=== PATIENT | female | born 1990 | race Caucasian/White ===

== ENCOUNTER 2017-06-10 03:13 | Emergency (ER) | payer SELFPAY ==
[~2017-06-10] VITALS: Ht 170.2 cm; Wt 67.0 kg
[2017-06-10 03:24] VITALS: BP 111/69; PULSE 84; RESP 18; TEMP 98.3; O2SAT 100
[2017-06-10 04:49] LABS: BILIRUBIN, URINE NEG (NEG); BLOOD, URINE TRACE (NEG); GLUCOSE,URINE NEG (NEG); KETONE, URINE NEG (NEG); NITRITE,URINE NEG (NEG); PH, URINE 5.5 (5.0-8.5); URINE COLOR YELLOW (YELLW/STRAW); URINE LEUKOCYTE ESTERASE NEG (NEG)
[2017-06-10] MEDS ORDERED: ZOLO100T PO (05:29)
[2017-06-10] MEDS ORDERED: BIRTH CONTROL PILLS PO (05:29)
[2017-06-10] MEDS ORDERED: BUPR100CR PO (05:29)
[2017-06-10 05:35] LABS: RBC, URINE 0-3 /hpf (0-3); SQUAMOUS EPITHELIAL CELL URINE 0-5 /hpf (0-5); WBC, URINE 0-2 /hpf (0-5)
[2017-06-10 07:05] VITALS: BP 106/56; PULSE 81; RESP 18; O2SAT 99
[2017-06-10 07:18] VITALS: BP 108/69; PULSE 95; RESP 16; O2SAT 97
--- NOTE | 2017-06-10 07:29 | PD ---
HPI Chief Complaint: Injury Time Seen by Provider: 06:56 Travel History International Travel<30 days: No Contact w/Intl Traveler<30days: No Traveled to known affect area: No History of Present Illness HPI 27-year-old female arrives to the ER by EMS. The patient was at a music concert. The patient had a fall. The patient drank alcohol yesterday. She complains of right shoulder pain. Associated abrasion reported. No additional complaints. PFSH Past Medical History Diminished Hearing: No Tetanus Vaccination: Unknown Influenza Vaccination: Yes ?: Not LMP: 06/04/17 Past Surgical History Tonsillectomy: Yes Social History Alcohol Use: Yes (TWICE A WEEK) Tobacco Use: No Substance Use: No Allergies-Medications Reported Meds & Prescriptions Reported Meds & Active Scripts Active Reported [ Control Pills] 1 Tab PO DAILY Zoloft (Sertraline HCl) 100 Mg Tab 100 Mg PO DAILY Wellbutrin SR 12 HR (Bupropion HCl) 100 Mg Tab 100 Mg PO Q12HR Review of Systems Except as stated in HPI: all other systems reviewed are Neg General / Constitutional: No: Fever Physical Exam Narrative GENERAL: 27 yo F, WNWD, NAD, sleeping comfortably SKIN: Warm and dry. HEAD: Atraumatic. Normocephalic. EYES: Pupils equal and round. No scleral icterus. No injection or drainage. ENT: No nasal bleeding or discharge. Mucous membranes pink and moist. NECK: Trachea midline. No JVD. CARDIOVASCULAR: Regular rate and rhythm. RESPIRATORY: No accessory muscle use. Clear to auscultation. Breath sounds equal bilaterally. GASTROINTESTINAL: Abdomen soft, non-tender, nondistended. Hepatic and splenic margins not palpable. MUSCULOSKELETAL: There is approximately 7 cm of abrasion overlying the posterior aspect of the right shoulder. Range of motion of the right upper extremity is normal. 2+ radial artery pulse bilaterally. NEUROLOGICAL: Awake and alert. No obvious cranial nerve deficits. Motor grossly within normal limits. Five out of 5 muscle strength in the arms and legs. Normal speech. PSYCHIATRIC: Appropriate mood and affect; insight and judgment normal. Data Data Last Documented VS Vital Signs Date Time Temp Pulse Resp B/P (MAP) Pulse Ox O2 Delivery O2 Flow Rate FiO2 06/10/17 07:18 95 16 108/69 (82) 97 06/10/17 03:24 98.3 Orders Orders Urinalysis - C+S If Indicated (06/10/17 04:39) Ed Urine Pregnancytest Poc (06/10/17 04:39) Ed Discharge Order (06/10/17 07:29) Labs Laboratory Tests Test 06/10/17 04:43 Urine Color YELLOW Urine Turbidity CLEAR Urine pH 5.5 Urine Specific [place] LESS/EQUAL 1.005 Urine Protein NEG mg/dL Urine Glucose (UA) NEG mg/dL Urine Ketones NEG mg/dL Urine Occult Blood TRACE Urine Nitrite NEG Urine Bilirubin NEG Urine Urobilinogen 0.2 MG/DL Urine Leukocyte Esterase NEG Urine RBC 0-3 /hpf Urine WBC 0-2 /hpf Urine Squamous Epithelial Cells 0-5 /hpf Microscopic Urinalysis Comment CULT NOT INDICATED MDM Medical Decision Making Medical Screen Exam Complete: Yes Emergency Medical Condition: Yes Medical Record Reviewed: Yes Differential Diagnosis shoulder abrasion, dislocation of shoulder, alcohol intoxication Narrative Course Patient reports near complete resolution of effects of alcohol at approximately 7:36 AM. She ambulated around the ER without difficulty. There is normal range of motion of the right upper extremity in the right shoulder abrasion fairly minimal about 7 cm in maximum diameter. She is ready for discharge at 737AM. Diagnosis Primary Impression: Fall Qualified Codes: W19.XXXA - Unspecified fall, initial encounter Additional Impressions: Shoulder abrasion Qualified Codes: S40.211A - Abrasion of right shoulder, initial encounter Alcohol intoxication Qualified Codes: F10.920 - Alcohol use, unspecified with intoxication, uncomplicated Med/Other Pt SpecificInfo: No Change to Meds Disposition: 01 DISCHARGE HOME Condition: Stable Jhonny Bower MD Jun 10, 2017 07:29
== END 2017-06-10 07:35 | disposition home or self-care (01) ==
LOC: PHED 03:13
DX: S40.211A Abrasion of right shoulder, initial encounter (principal); F10.129 Alcohol abuse with intoxication, unspecified; W19.XXXA Unspecified fall, initial encounter
CPT/HCPCS: 81001; 84703; 99283